=== PATIENT | female | born 1965 | race Caucasian/White ===

== ENCOUNTER 2018-08-12 05:38 | Inpatient (IN) | payer OTHER ==
[2018-08-12] MEDS ORDERED: GABAPENTIN 300 MG CAP PO ONE (06:32)
[2018-08-12] MEDS ORDERED: TRANEXAMIC ACID 1,000 MG in NS 100 ML IV ONE (06:32)
[2018-08-12] MEDS ORDERED: ACETAMINOPHEN 500 MG TAB PO ONE (06:32)
[2018-08-12] MEDS ORDERED: ceFAZolin 2 GM/DEXTROSE 100 ML IV ONE (06:32)
--- NOTE | 2018-08-12 06:33 | PDHPUP ---
History & Physical Update H&P update statement: This history and physical update is based on an assessment of the patient which was completed after admission or registration (within 24 hours), but prior to the surgery/procedure. H&P update: H&P reviewed & patient examined, no change in patient's condition since H&P completed
[2018-08-12] MEDS ORDERED: LR 1,000 ML IV ONE (06:35)
[2018-08-12] MEDS ORDERED: MIDAZOLAM 2 MG/2 ML VIAL IVP ONE (06:44)
--- NOTE | 2018-08-12 06:44 | PDANEPAE ---
ANE Past Medical History - Cardiovascular History Hx Hypertension: No Hx Arrhythmias: No Hx Chest Pain: No Hx Coronary Artery / Peripheral Vascular Disease: No Hx CHF / Valvular Disease: No Hx Palpitations: No - Pulmonary History Hx COPD: No Hx Asthma/Reactive Airway Disease: No Hx Recent Upper Respiratory Infection: No Hx Oxygen in Use at Home: No Hx Sleep Apnea: No Sleep Apnea Screening Result - Last Documented: Negative - Neurologic History Hx Cerebrovascular Accident: No Hx Seizures: No Hx Dementia: No - Endocrine History Hx Diabetes: No Hypothyroid: No Hyperthyroid: No Obesity: no - Renal History Hx Renal Disorders: No - Liver History Hx Hepatic Disorders: No - Neurological & Psychiatric Hx Hx Neurological and Psychiatric Disorders: No - Cancer History Hx Cancer: No - Congenital Disorder History Hx Congenital Disorders: No - GI History GERD: no Hx Gastrointestinal Disorders: No - Other Health History Other Health History: low back ache, aching throbs in bilat lower legs, left hip pain - Chronic Pain History Chronic Pain: Yes (low back, BLE's) - Surgical History Prior Surgeries: appendectomy. eye surgery for strabismus. right meniscus repair ANE Review of Systems Review of Systems: - Exercise capacity Exercise capacity: >=4 METS, limited by disability METS (RN): 5 METS ANE Patient History - Allergies Allergies/Adverse Reactions: No Known Allergies Allergy (Verified 08/09/18 10:20) - Home Medications Home Medications: Herbals/Supplements -Info Only 07/27/18 [Last Taken 08/05/18] Acetaminophen [Tylenol] PRN 08/09/18 [Last Taken 08/11/18] Advil PRN 08/09/18 [Last Taken 08/05/18] Alpha Lipoic Acid 08/09/18 [Last Taken 08/05/18] Cholecalciferol (Vitamin D3) [Vitamin D3] 08/09/18 [Last Taken 08/05/18] Estrogen, Bio-Identical 08/09/18 [Last Taken 08/05/18] Fish Oil Palisade-3 Softgel 08/09/18 [Last Taken 08/05/18] Magnesium Oxide [Magnesium] 08/09/18 [Last Taken 08/09/18] Progesterone, Micronized [Progesterone] 08/09/18 [Last Taken 08/05/18] Turmeric Root Extract [Turmeric] 08/09/18 [Last Taken 08/05/18] - NPO status NPO Since - Liquids (Date): 08/11/18 NPO Since - Liquids (Time): 22:00 NPO Since - Solids (Date): 08/11/18 NPO Since - Solids (Time): 21:30 - Anes Hx Anes Hx: no prior problems - Smoking Hx Smoking Status: Never smoked Marijuana use: No - Alcohol Use Alcohol Use: Occasionally - Family Anes Hx Family Anes Hx: neg - N/A Family Hx Anesthesia Complications: none ANE Labs/Vital Signs - Labs Result Diagrams: 08/12/18 06:55 - Vital Signs Blood Pressure: 116/76 Heart Rate: 63 Respiratory Rate: 16 O2 Sat (%): 98 Height: 157.48 cm Weight: 54.431 kg ANE Physical Exam - Airway Neck exam: FROM Mallampati Score: Class 1 Mouth exam: normal dental/mouth exam - Pulmonary Pulmonary: no respiratory distress, no rales or rhonchi, clear to auscultation - Cardiovascular Cardiovascular: regular rate and rhythym, no murmur, rub, or gallop - ASA Status ASA Status: II ANE Anesthesia Plan Anesthesia Plan: general endotracheal anesthesia Total IV Anesthesia: No
[2018-08-12] MEDS ORDERED: SURGIFLO MATRIX KIT WITH THROMBIN 8 ML TP ONE (06:57)
[2018-08-12] MEDS ORDERED: VANCOMYCIN 1 GM VIAL ONE (06:58)
[2018-08-12] MEDS ORDERED: BACITRACIN 50,000 UNITS/10 ML SYR IRR ONE (06:58)
[2018-08-12] MEDS ORDERED: BUPIVACAINE 0.5% 30 ML SDV ONE (06:58)
[2018-08-12 07:03] LABS: PLATELET COUNT 221 10^3/uL (150-400)
[2018-08-12] MEDS ORDERED: fentaNYL 100 MCG/2 ML INJ ONE ×2 (07:03→12:00)
[2018-08-12] MEDS ORDERED: PROPOFOL 200 MG/20 ML VIAL ONE (07:03)
[2018-08-12] MEDS ORDERED: PROPOFOL/EMULSION 500 MG/50 ML BOTTLE IV ONE ×2 (07:03→10:34)
[2018-08-12] MEDS ORDERED: REMIFENTANIL HCL 1 MG VIAL ONE ×2 (07:03→10:31)
[2018-08-12] MEDS ORDERED: ONDANSETRON 4 MG/2 ML VIAL ONE (07:05)
[2018-08-12] MEDS ORDERED: ROCURONIUM 50 MG/5 ML VIAL ONE (07:05)
[2018-08-12] MEDS ORDERED: LIDOCAINE 2% 5 ML SDV ONE (07:05)
[2018-08-12] MEDS ORDERED: DEXAMETHASONE 4 MG/ML VIAL ONE (07:05)
[2018-08-12] MEDS ORDERED: ACETAMINOPHEN 500 MG TAB PO PRN (08:05)
[2018-08-12] MEDS ORDERED: NALOXONE HCL 0.4 MG/ML INJ IVP PRN (08:05)
[2018-08-12] MEDS ORDERED: oxyCODONE IR 5 MG TAB PO PRN (08:05)
[2018-08-12] MEDS ORDERED: HYDROCODONE/APAP 5/325 TAB PO PRN (08:05)
[2018-08-12] MEDS ORDERED: ONDANSETRON 4 MG/2 ML VIAL IVP PRN ×2 (08:05→13:06)
[2018-08-12] MEDS ORDERED: LR 500 ML IV PRN (08:05)
[2018-08-12] MEDS ORDERED: PHENYLEPHRINE HCL 100 MCG/ML SYR IVP PRN (08:05)
[2018-08-12] MEDS ORDERED: PROMETHAZINE HCL 25 MG/ML INJ IVP PRN (08:05)
[2018-08-12] MEDS: fentaNYL 100 MCG/2 ML INJ IVP PRN ×3 (12:02→12:19)
[2018-08-12] MEDS ORDERED: HYDROmorphONE/DILAUDID 2 MG/ML INJ ONE (12:20)
[2018-08-12] MEDS: HYDROmorphONE/DILAUDID 2 MG/ML INJ IVP PRN ×3 (12:25→12:55)
[2018-08-12] MEDS ORDERED: DIAZEPAM 5 MG/ML 1 ML SYR ONE (12:29)
[2018-08-12] MEDS: DIAZEPAM 5 MG/ML 1 ML SYR IVP PRN ×2 (12:30→12:48)
[2018-08-12] MEDS ORDERED: MAGNESIUM HYDROXIDE 30 ML UDCUP PO PRN (13:06)
[2018-08-12] MEDS ORDERED: BISACODYL 10 MG SUPP PR PRN (13:06)
[2018-08-12] MEDS ORDERED: LACTULOSE 20 GM/30 ML UDCUP PO PRN (13:06)
[2018-08-12] MEDS ORDERED: ONDANSETRON DISINTEGRATING 4 MG TAB PO PRN (13:06)
[2018-08-12] MEDS ORDERED: diphenhydrAMINE 25 MG CAP PO PRN (13:06)
[2018-08-12] MEDS: ACETAMINOPHEN 500 MG TAB PO SCH ×2 (14:06→21:08)
[2018-08-12] MEDS: oxyCODONE IR 5 MG TAB PO PRN ×2 (14:07→18:49)
--- NOTE | 2018-08-12 14:47 | PDMN ---
Medical Necessity Medical necessity: [facility] [place] S820 lumbar fusion: 3 days OP: L5/S1 anterior lumbar fusion, L5/S1 lumbar fusion- posterior - AUTH # [id number] FOR CPT [id number]. DONE IN PT
--- NOTE | 2018-08-12 15:43 | POSTANESTH ---
Post Anesthetic Evaluation Cardiovascular Status: Normal, Stable Respiratory Status: Normal, Stable Level of Consciousness/Mental Status: Can Participate in Eval Pain Control: Adequate, Prn Tx Ordered Nausea/Vomiting Control: Adequate, Prn Tx Ordered Complications Possibly Related to Anesthesia: None Noted
[2018-08-12] MEDS: ceFAZolin 2 GM/DEXTROSE 100 ML IV SCH (21:09)
[2018-08-12] MEDS: SENNOSIDES/DOCUSATE SODIUM TAB PO SCH (21:10)
[2018-08-12] MEDS: FAMOTIDINE 20 MG TAB PO SCH (21:10)
--- NOTE | 2018-08-12 22:34 | SUROPNOTE ---
[facility] Operative Report - Surgery Date: 08/12/18 Pre-operative Diagnoses: L5/S1 Degenerative disc disease and spondylosis Bilateral L5/S1 foraminal spinal stenosis Bilateral L5 pars insufficiency fractures Post-operative Diagnosis: Same Procedures: L5/S1 Anterior Lumbar Interbody Fusion (ALIF) Structural use of allograft Structural use of autograft Use of intra-operative fluoroscopy Use of intra-operative neuromonitoring, including MEP, EMG and SSEP modalities L5/S1 Minimally Invasive Posterior Lumbar Fusion with Instrumentation Bilateral L5 reduction of pars fractures Surgeons: Mark Warner MD, Dwight Bentley MD Assist: Nydia Melgoza (used for posterior portion) Anesthesia: General endotracheal anesthesia Findings: As expected Estimated Blood Loss: 50mL Drains: None Specimens: None Complications: None Condition: Transferred to PACU in stable condition. Implants: DePuy cage (anterior) Screws: 6.0 x 24mm locking screws x4 ALIF cage: [place] cage, small x 10deg x 10mm Allograft: 3mL allograft used structurally within the disc space Autograft: local autograft bone from anterior bone spurs Posterior: NuVasive Screws: 6.5 x 45mm L5, 6.5 x 50mm S1 Rods: 45mm bilaterally Indications: This patient was seen in my office and diagnosed with degenerative disc disease and spinal stenosis. I have explained all options of treatment for the patient, and the patient has elected to proceed with operative management. I have explained all risks, benefits, and alternatives of the proposed procedure. The risks that we have discussed include , blindness, nerve damage, infection, dural tear, failure of surgery to alleviate pre-operative symptoms, and possible need for further operation. I explained separately the risks of allograft, including infection and disease transfer. I had a separate discussion with the patient regarding the oncologic risks of BMP. I had a separate discussion about the risks of an abdominal surgery, including damage to intraabdominal contents and great vessels. In addition to the aforementioned procedure, I discussed with the patient that other procedures may be indicated during the course of surgery that would be considered in the patients best interest. The patient expressed understanding of this and agreed to move forward with operative management. Pre-operative: The proposed incision site was marked in the pre-operative holding area by me. The patient was then taken to the operating room in stable condition. Following smooth induction of general anesthesia, the patient was positioned supine on a Allan table with all down surfaces well-padded. The patient was then prepped and draped in the usual sterile fashion. Pre-operative antibiotics were administered within one hour of the incision. A surgical timeout was performed, and all parties involved in the procedure were in agreement on the correct patient, location, and procedure to be performed. Dr. Aguayo was present for the surgical timeout. Approach and dissection: Dr. Bentley performed the surgical approach to the disc space for this patient. Please see his surgical dictation for further details. Spinal pause: A spinal needle was placed into the proposed disc space. A secondary spinal pause was then performed, and the level was confirmed with all parties participating in the operation. Disc preparation: At this time, the L5/S1 disc was removed entirely to allow for proper cage placement, using sharp and blunt instruments. The posterior longitudinal ligament was readily identified and transected. Serial spacers were placed into the disc space to both distract the space as well as trial for the final proposed implant. At this time, the dura was noted to be intact, and the posterior endplates were well-distracted. Cage placement: At this time, an appropriately-sized cage was selected and packed with allograft. This was gently tamped into place and noted to be well-positioned by fluoroscopy. There were no monitoring changes during this time. Both foraminae were noted to have good indirect decompression, with excellent religious of lordosis. This was confirmed by fluoroscopy. Plate placement: At this point, an appropriately-sized plate was placed over the disc space and cage. Based on the trajectory, it was determined that the patients anatomy would not accommodate an anterior plate. Closure: The surgical field was then copiously irrigated with sterile saline. Attention was turned to closure, which was then performed by Dr. Bentley. For details on closure, please see Dr. Aguayos operative dictation. Patient transfer: The patient was then carefully transferred to a Allan table, and positioned prone with all down surfaces well-padded. The patient was then prepped and draped in the usual sterile fashion. A second surgical timeout was performed, and all parties involved in the procedure were in agreement on the correct patient, location, and procedure to be performed. Pedicle screw placement: All pedicle screws were placed in a percutaneous fashion at the L5 and S1 levels bilaterally. Using biplanar fluoroscopy, a Jamshidi needle was gently malleted into place at the appropriate pedicle screw starting position at the lateral border of the facet on the AP view and mid-point of the pedicle on lateral view. The needle was advanced just past the pedicle into the vertebral body. At this point, a neurostimulating probe was attached to the end of the needle and the potentials were noted to be above 20 milliamps. The central trocar was then removed, and a blunt K-wire was passed into the cannulated pedicle. The Jamshidi was then removed completely, with the K-wire anchored in the vertebral body. A tap was then used up to a size that was 1mm below the final screw size based on pre-operative templating. An appropriately-sized screw was placed at each level and confirmed fluoroscopically. All screws were then stimulated. Each screw was stimulated and potentials were all above 20 milliAmps. Morgan and set screw placement, reduction of bilateral L5 pars fractures: At this time, associated tulip heads were placed into the screws with associated reduction towers. Using a percutaneous morgan passer, an appropriately- sized morgan was then placed into the pedicle screw heads with ample morgan extending from either end. To ensure that the rods were appropriately positioned, three checks were performed: the rods were visually inspected, the insertion handle was torqued and both towers were visualized to move, and a lateral radiograph was taken to ensure an appropriate length to the rods. At this point, a lateral radiograph was taken and reduction of the vertebral insufficiency fractures was noted. Of note, there were no changes in the SSEP and EMG monitoring during this maneuver. Set screws were then placed into the cephalad pedicle screws over the rods, and all set screws were tensioned using a torque-limited screwdriver. Neuromonitoring: SSEP, MEP and EMG were used throughout the case from incision until the beginning of closure. There were no significant changes throughout the case, and SSEP signals were at their pre-surgical baseline levels before surgical closure was initiated. assistant statistician: A assistant professor surgical technology was used throughout the posterior aspect of the case, and deemed necessary for safe neural retraction, hemostasis, and suction. Recovery: The patient was extubated uneventfully in the operating room. The patient was taken to the recovery room in stable condition. Sequential compression devices for VTE prophylaxis were applied to the patients lower extremities, and were ordered to be used while the patient was non-ambulatory. Chemical VTE prophylaxis was considered to be contraindicated for this patient because of the risk of bleeding near the epidural space. Mark Warner MD
--- NOTE | 2018-08-12 23:49 | GOP ---
DATE OF OPERATION: 08/12/2018 SURGEON: Dwight Bentley MD CO-SURGEON: Mark Warner MD ANESTHESIA: General. ANESTHESIOLOGIST: Dr. Cooper. PREOPERATIVE DIAGNOSIS: Lumbosacral spondylolisthesis. POSTOPERATIVE DIAGNOSIS: Lumbosacral spondylolisthesis. PROCEDURE PERFORMED: 1. Anterior retroperitoneal L5-S1 exposure. 2. L5-S1 anterior lumbar interbody fusion. INDICATIONS: 53-year-old female with progressive severe lower back pain with radiculopathy. She has a significant L5-S1 spondylolisthesis. She is undergoing spinal intervention at this time. General/vascular surgery has been requested to assist with anterior retroperitoneal spinal exposure. DESCRIPTION OF PROCEDURE: General anesthesia was induced. A small Pfannenstiel incision was created. The rectus and oblique fascia were opened transversely. The left rectus sheath was retracted medially. The transversalis fascia was incised, allowing entrance into the retroperitoneal space. Using blunt dissection, the retroperitoneal envelope was completely reflected medially allowing exposure to the aortic bifurcation. The ureter was preserved with the envelope throughout the dissection. The middle sacral vessels were divided using electrocautery. Using further dissection, the iliac bifurcation was elevated off the L5 disk space. Intraoperative fluoroscopy was used to confirm the proper disk space for diskectomy and hardware placement. The retractors were applied allowing for complete mobilization of both left and right common iliac veins. The diskectomy and spacer placement were completed by Dr. Warner. Please refer to his dictation under separate heading. Upon completion, the iliac vessels were confirmed hemostatic. The retroperitoneal envelope was allowed to fall back into place. The anterior abdominal fascia was closed with running PDS suture. The wound was closed in layers with absorbable sutures, followed by Dermabond. Care of the case was turned over to Dr. Warner for prone positioning and posterior spinal instrumentation. /[id number]/MODL MTDD
[2018-08-13] MEDS: oxyCODONE IR 5 MG TAB PO PRN ×5 (01:11→16:57)
[2018-08-13] MEDS: ceFAZolin 2 GM/DEXTROSE 100 ML IV SCH (05:25)
[2018-08-13] MEDS: ACETAMINOPHEN 500 MG TAB PO SCH ×3 (06:22→21:44)
[2018-08-13] MEDS ORDERED: NS 1,000 ML IV ONE (09:00)
[2018-08-13] MEDS: POLYETHYLENE GLYCOL 3350 17 GM PKT PO PRN (09:14)
[2018-08-13] MEDS: SENNOSIDES/DOCUSATE SODIUM TAB PO SCH ×2 (09:14→20:45)
[2018-08-13] MEDS: FAMOTIDINE 20 MG TAB PO SCH ×2 (09:14→20:46)
[2018-08-13] MEDS: METHOCARBAMOL 750 MG TAB PO PRN ×3 (09:14→20:44)
--- NOTE | 2018-08-13 12:41 | SOAPPROG ---
SOAP Progress Note Assessment/Plan: Assessment:good night. unable to stand secondary to pain/dizziness last evening. pain controlled. afebrile. bp 80-100. comfortable. abd soft. dressing dry. normal femoral pulses. BLE strength 5/5 bilaterally. pod#1 s/p ALIF/posterior instrumentation. doing well. IVF challenge. PT/OT. pain control. diet as able. Plan: 08/13/18 12:41 08/13/18 12:41 Objective: Vital Signs Temp Pulse Resp BP Pulse Ox 37.3 C 59 L 16 88/47 L 94 08/13/18 12:00 08/13/18 12:00 08/13/18 12:00 08/13/18 12:00 08/13/18 12:00 Laboratory Results 08/12/18 06:55 08/12/18 08/13/18 08/14/18 05:59 05:59 05:59 Intake Total 1905 1000 Output Total 1650 600 Balance 255 400 ICD10 Worksheet Patient Problems: Problems Problem Status Onset Spondyloarthropathy Acute - ICD10 Problem Qualifiers (1) Spondyloarthropathy
--- NOTE | 2018-08-13 14:10 | ASMTCMCOM ---
CM Note CM Note Notes: Pt had planned spinal surgery, resides with spouse. PT rec home. Anticipate pt will d/c when medically stable. No CM d/c needs identified. CM available for changes/needs. Date Signed: 08/13/2018 02:09 PM Electronically Signed By:CATE Davidson
--- NOTE | 2018-08-13 17:59 | GPROG ---
DATE OF SERVICE: 08/13/2018 I saw and evaluated the patient last night as well as this morning and afternoon. Overall, she is co mplaining of some back and abdominal pain, not unusual for this procedure. She does not report any r adicular symptoms. In fact, last night when I saw her, she reported complete resolution of the anter olateral rhodes numbness and sensory disturbance that she was having. PHYSICAL EXAM: Her dressings are clean, dry, intact and left in place. She has no sensory, motor, o r vascular deficits. IMPRESSION: Postoperative day 1 status post L5-S1 fusion. ASSESSMENT/PLAN: Moving forward, we will go forward with standard criteria for discharge as long as the patient is safe and her pain is controlled on oral regimen. At this point, we will go slow with her with regard for physical therapy and will re-evaluate her tomorrow. /[id number]/MODL
[2018-08-13] MEDS: HYDROmorphONE/DILAUDID 2 MG TAB PO PRN (23:21)
[2018-08-14] MEDS: HYDROmorphONE/DILAUDID 2 MG TAB PO PRN ×4 (00:26→20:35)
[2018-08-14] MEDS: METHOCARBAMOL 750 MG TAB PO PRN (04:41)
[2018-08-14] MEDS: oxyCODONE IR 5 MG TAB PO PRN (04:42)
[2018-08-14] MEDS: ACETAMINOPHEN 500 MG TAB PO SCH ×3 (06:00→22:02)
--- NOTE | 2018-08-14 07:15 | SOAPPROG ---
SOAP Progress Note Assessment/Plan: Assessment: much better evening. pain controlled with po dilaudid. no nausea. unable to stand without lightheadedness/dizziness yesterday. ready to move more today. avss. comfortable. skin color better. abd soft, dist. incis clean. feet warm. sensation symmetric/normal. pod#2 s/p anterior / posterior l5s1. doing well overall. reattempt ambulation today. home when pain controlled/steady on her feet. Plan: 08/13/18 12:41 08/13/18 12:41 08/14/18 07:13 Objective: Vital Signs Temp Pulse Resp BP Pulse Ox 36.4 C 62 16 110/64 96 08/14/18 04:00 08/14/18 04:00 08/14/18 04:00 08/14/18 04:00 08/14/18 04:00 Laboratory Results 08/12/18 06:55 08/13/18 08/14/18 08/15/18 05:59 05:59 05:59 Intake Total 1905 3200 Output Total 1650 1700 Balance 255 1500 ICD10 Worksheet Patient Problems: Problems Problem Status Onset Spondyloarthropathy Acute - ICD10 Problem Qualifiers (1) Spondyloarthropathy
[2018-08-14] MEDS: SENNOSIDES/DOCUSATE SODIUM TAB PO SCH ×2 (08:12→20:35)
[2018-08-14] MEDS: FAMOTIDINE 20 MG TAB PO SCH ×2 (08:12→20:35)
[2018-08-14] MEDS: POLYETHYLENE GLYCOL 3350 17 GM PKT PO PRN (08:16)
--- NOTE | 2018-08-14 09:42 | GPROG ---
The patient offers no unusual complaints at this point. PHYSICAL EXAMINATION: Dressings are clean, dry, intact and left in place. She has no neurological d eficits. IMPRESSION: Postoperative day 2, status post anterior-posterior lumbar fusion. ASSESSMENT AND PLAN: Will try some Zofran. I think this may help with the patient's nausea. It see ms to be positional. We did switch her up to Dilaudid, which proved a better pain medication for her . She is passing gas, and ileus is not a concern at this point. She is chewing gum and eating some small amounts of food. Will get some x-rays later today to see how she is doing. I anticipate she may be able to leave and go home tomorrow. All questions were answered at this time. Please do not hesitate to contact me if any further questions arise for this patient. /[id number]/MODL
[2018-08-15] MEDS: HYDROmorphONE/DILAUDID 2 MG TAB PO PRN ×2 (05:54→10:23)
[2018-08-15] MEDS: ACETAMINOPHEN 500 MG TAB PO SCH (05:55)
--- NOTE | 2018-08-15 08:03 | GPROG ---
DATE OF SERVICE: 08/15/2018 I saw and evaluated the patient this morning. Overall, she is doing quite well, much improved from t he day before. She notices that the aching she was having in her shins bilaterally is now either com pletely gone or mostly gone. She is still having some back pain, which is appropriate. Nausea and l ightheadedness are much, much improved. Dressings are clean, dry, and intact, and left in place. IMPRESSION: Postoperative day 3 status post lumbar fusion. ASSESSMENT/PLAN: The patient has done well from the operation. She seems to have turned the corner over the last 24 hours and I will let her go home today. We switched up her medication to Dilaudid, which seems to be more effective for her. /[id number]/MODL
--- NOTE | 2018-08-15 08:07 | GDS ---
The patient underwent an uneventful ALIF and posterior stabilization of the L5-S1 level on July 182017. There were no complications during the surgery. She did well following the operation and s he noticed improvement of her lower extremity radiculopathy. Following surgery, her medication was s witched from oxycodone to hydromorphone, and she tolerated this much better. She was noted to have s ome lightheadedness; however, this was noted consistent only with orthostatic hypotension. This even tually resolved and the patient was cleared for discharge on postoperative day 3. Moving forward, the patient is to wear her lumbosacral orthosis when she goes home and wear it for an y sort of long walks. She can discontinue the dressing after 24 hours from leaving the hospital. Rani isaacs is allowed to shower, but not to take a bath, swim, or immersed the incisions in water. She has be en prescribed both oxycodone and Dilaudid for discharge, as well as a muscle relaxer. The patient do es have a pre-surgical packet, which should answer any or all questions she has. She is more than we lcome to call my cell phone, which she has if she has any further questions. I will see her back in my office in 2 weeks' time. /[id number]/MODL
[2018-08-15 08:19] VITALS: BP 99/87
--- NOTE | 2018-08-15 09:16 | ASDISCHSUM ---
Discharge Information Plan Status:Home with No Needs Medically Cleared to Leave:08/14/2018 Discharge Date:08/14/2018 CM D/C Disposition:Home, Routine, Self-Care ADT D/C Disposition: Projected Discharge Date:08/14/2018 Transportation at D/C: Discharge Delay Reason: Follow-Up Date:08/14/2018 Discharge Slot: Final Diagnosis: Placement Information Patient Contact Information Contact Name:KRISTAL Relationship: Address:[address] [place] [address] City:[place] Alternate Phone: State/Zip Code:[place] [address] Email: Financial Information Financial Class:HMO and PPO Plans Primary Plan Desc:[employer] Primary Plan Number:[id number] Secondary Plan Desc: Secondary Plan Number: Assessment Information [facility] CM Progress Note CM Note CM Note Notes: Pt had planned spinal surgery, resides with spouse. PT rec home. Anticipate pt will d/c when medically stable. No CM d/c needs identified. CM available for changes/needs. Date Signed: 08/13/2018 02:09 PM Electronically Signed By:CATE Davidson Intervention Information
--- NOTE | 2018-08-15 09:17 | ASMTLACE ---
PRAB[facility] Length of stay for Answers: 3 days current admission Acuity / Level of Answers: No Care: Did the patient have an inpatient admission? # of Emergency department Answers: 0 visits in the last 6 months Score: 3 Date Signed: 08/15/2018 09:16 AM Electronically Signed By:Sagrario Otto RN
--- NOTE | 2018-08-15 09:22 | ASMTDCNOTE ---
Case Management Discharge Discharge Order Complete? Answers: Yes Patient to Obtain Answers: via Family Medications Transportation Arranged Answers: Family/Friends Family Notified Answers: Yes Discharge Comments Notes: Medically cleared for discharge to home. No current needs. Has brace to wear and instuctions for care and follow up. Date Signed: 08/15/2018 09:22 AM Electronically Signed By:Sagrario Otto RN
[2018-08-15] MEDS: FAMOTIDINE 20 MG TAB PO SCH (09:26)
[2018-08-15] MEDS: SENNOSIDES/DOCUSATE SODIUM TAB PO SCH (09:26)
--- NOTE | 2018-08-15 09:45 | SOAPPROG ---
SOAP Progress Note Assessment/Plan: Assessment: continued slow progress. pain controlled. no nausea. left groin pain resolved. avss. comfortable. ambulating well in halls currently. home today. much better evening. pain controlled with po dilaudid. no nausea. unable to stand without lightheadedness/dizziness yesterday. ready to move more today. avss. comfortable. skin color better. abd soft, dist. incis clean. feet warm. sensation symmetric/normal. pod#2 s/p anterior / posterior l5s1. doing well overall. reattempt ambulation today. home when pain controlled/steady on her feet. Plan: 08/13/18 12:41 08/13/18 12:41 08/14/18 07:13 08/15/18 09:44 Objective: Vital Signs Temp Pulse Resp BP Pulse Ox 37.2 C 72 16 99/87 H 94 08/15/18 08:00 08/15/18 08:00 08/15/18 08:00 08/15/18 08:00 08/15/18 08:00 Laboratory Results 08/12/18 06:55 08/14/18 08/15/18 08/16/18 05:59 05:59 05:59 Intake Total 3200 1600 Output Total 1700 500 Balance 1500 1100 ICD10 Worksheet Patient Problems: Problems Problem Status Onset Spondyloarthropathy Acute - ICD10 Problem Qualifiers (1) Spondyloarthropathy
[2018-08-15] MEDS: POLYETHYLENE GLYCOL 3350 17 GM PKT PO PRN (10:31)
== END 2018-08-15 13:17 | disposition home or self-care (01) | DRG 460 ==
LOC: F3N 05:38
PROVIDERS: ADMIT Orthopaedic Surgery Orthopaedic Surgery of the Spine; ATTEND Orthopaedic Surgery Orthopaedic Surgery of the Spine
DX: M43.16 Spondylolisthesis, lumbar region (principal); M84.48XA Pathological fracture, other site, initial encounter for fracture; M51.16 Intervertebral disc disorders with radiculopathy, lumbar region
CPT/HCPCS: 97116-GP; 97161-GP; 97165-GO; 97530-GP; 97535-GO; C1713; C1762; J0690; J1100; J1170; J2250; J2270; J2405; J2704; J3010; J3360; J3370